=== PATIENT | female | born 1955 | race Caucasian/White ===

== ENCOUNTER 2016-09-09 09:09 | Inpatient (IN) | payer OTHER ==
[~2016-09-09] VITALS: Ht 160 cm; Wt 52.5 kg
--- NOTE | ~2016-09-09 | HP ---
Unit #: [id number] #: [id number] Patient: FREDO MOCK [id number] [facility]. [place], [place] [address] [id number] MR#: [id number] NAME: FREDO MOCK ROOM: Age: 61 Sex: F Admission Date: 09/09/2016 : 1955 Attending Physician: Kai Casey M.D. Primary Care Physician: Eri Melara A.P.R.N. HISTORY AND PHYSICAL CHIEF COMPLAINT Arm swelling. HISTORY OF PRESENT ILLNESS The patient is a 61-year-old female with past medical history of COPD, chronic respiratory failure, hyperlipidemia, who presented to the emergency department for evaluation of the above. The patient states that she was scratched by a dog about two weeks after Mother's Day. She states that the scratch was healing well until a couple of weeks ago when it started itching. She then tried Calamine lotion and the area started burning. She was placed on Bactroban by her primary care physician. The arm has become increasingly red, swollen and tender to palpation. It has also been oozing. She denies any fever or chills. No cough or cold symptoms. No vomiting or diarrhea. In the emergency department, the patient was given vancomycin and Zosyn. She is being admitted to [facility] for evaluation and further treatment. PAST MEDICAL HISTORY 1. Admission to [facility], December 13, 2013, for acute respiratory failure and COPD exacerbation. 2. COPD followed by Keyana Guevara in Dr. Vela's office. 3. Chronic respiratory failure on two liters of oxygen per nasal cannula at night. 4. Hyperlipidemia. PAST SURGICAL HISTORY 1. Bilateral tubal ligation. 2. Cataract surgery. SOCIAL HISTORY The patient lives with her . She smokes less than a pack of cigarettes daily. She reports occasional alcohol use. FAMILY HISTORY Notable for her dad committing suicide. Her mother had some type of malignancy. ALLERGIES Gatifloxacin. HOME MEDICATIONS Unit #: [id number] #: [id number] Patient: FREDO MOCK 1. Folic acid 400 mcg daily. 2. Atorvastatin 10 mg daily. 3. Taladine 150 mg twice daily. 4. Breo Ellipta 100/25 mcg inhaled daily. 5. Tudorza inhaled twice daily. 6. Aspirin 81 mg daily. 7. Alendronate 70 mg weekly. 8. Fish oil 300 mg daily. 9. Celexa 20 mg daily. 10. ProAir two puffs four times daily p.r.n. 11. Calcium 600 mg daily. 12. Incruse Ellipta inhaled daily. REVIEW OF SYSTEMS A complete review of systems is negative except as indicated in HPI. PHYSICAL EXAMINATION GENERAL APPEARANCE: The patient is a female who is awake and alert, in no acute distress. VITAL SIGNS: Temperature 97.8. Pulse 107. Respirations 16. Blood pressure 152/91. Oxygen saturation was initially 89% on room air, most recently 94%. HEENT: The head is atraumatic. Mucous membranes are moist. NECK: Supple. Trachea is midline. CARDIOVASCULAR: Regular rate and rhythm. LUNGS: Clear to auscultation bilaterally with no increased work of breathing. ABDOMEN: Soft, nontender with bowel sounds present in all four quadrants. EXTREMITIES: The right forearm demonstrates erythema, warmth, edema and tenderness to palpation. It is weeping. There is a 2+ radial pulse. Sensation is intact. There is no pedal edema. NEUROLOGIC: The patient is awake and alert. She follows commands. PSYCHIATRIC: Mood and affect are normal. The patient is cooperative. SKIN: Of examined areas demonstrates the previously described abnormalities. DIAGNOSTIC STUDIES LABORATORY: Complete blood count is notable for MCV of 102.5. Basic metabolic panel notable for chloride of 99. ASSESSMENT The patient is a 61-year-old female with: 1. Right upper extremity cellulitis. 2. COPD with continued tobacco abuse. 3. Chronic respiratory failure on two liters of oxygen per nasal cannula at night. 4. Hyperlipidemia. PLAN 1. Admit to med/surg. 2. Healthy Heart diet. 3. Blood cultures x2. 4. Would culture and sensitivity. 5. Vancomycin IV and Zosyn IV for cellulitis. 6. PRN Tylenol. 7. PRN Zofran. 8. Supplemental oxygen. 9. Repeat labs in the morning. Unit #: [id number] #: [id number] Patient: FREDO MOCK 10. SCDs for DVT prophylaxis. 11. Additional workup and consultants based on above. Dictated by Ami Payan TD: 09/09/2016 13:49 JOB #: [id number] HISTORY AND PHYSICAL Page 1 of 1 X Eryn Russo MD HISTORY AND PHYSICAL
--- NOTE | ~2016-09-09 | DS ---
Unit #: [id number] #: [id number] Patient: FREDO MOCK [id number] [address] [address] [id number] MR#: [id number] NAME: FREDO MOCK ROOM: 228 Age: 61 Sex: F Admission Date: 09/09/2016 : 1955 Discharge Date: 09/11/2016 Attending Physician: Eryn Russo M.D. Primary Care Physician: Eri Melara A.P.R.N. DISCHARGE SUMMARY DIAGNOSIS ON ADMISSION Right upper extremity cellulitis. DIAGNOSES ON DISCHARGE 1. Right upper extremity cellulitis with small open area, improving. 2. Chronic obstructive pulmonary disease. 3. Chronic respiratory failure, on 2 liters of oxygen. 4. Hyperlipidemia. DIAGNOSTIC STUDIES LABS: The patient's creatinine is 0.4, sodium 139, potassium 4. WBC is 9.1, hemoglobin 13.8, platelet count 201. The patient's wound culture was done yesterday, and the results are pending. HOSPITAL COURSE This 61-year-old patient was admitted to [facility]. [facility] with right upper extremity cellulitis. The patient was treated with IV antibiotics and has responded well. Redness and swelling has improved. The patient was treated with IV vancomycin. Her wound cultures are pending, but she is very anxious to go home. Therefore, we will discharge her home on antibiotics with followup on outpatient basis. RECOMMENDATIONS ON DISCHARGE 1. Condition is stable. 2. Activity is as tolerated. DISCHARGE MEDICATIONS 1. Doxycycline 100 mg p.o. b.i.d. 2. Albuterol 2 puffs q.6 hours p.r.n. 3. Calcium 600 mg daily. 4. Tylenol 650 mg p.o. q.4 hours p.r.n. 5. Celexa 20 mg p.o. daily. 6. Breo Ellipta 100/25 one inhalation daily. 7. [place] fish oil 1 capsule daily. 8. Lipitor 10 mg p.o. daily. 9. Zantac 150 mg p.o. daily. 10. Fosamax 70 mg p.o. weekly. 11. Enteric-coated aspirin 81 mg p.o. daily. 12. Folic acid 1 mg p.o. daily. NOTE: The patient is advised to continue home inhalers. I did not make any change. FOLLOWUP Unit #: [id number] #: [id number] Patient: FREDO MOCK 1. The patient is advised to follow up with primary care physician in [address] Thomas and group in 1 week regarding the small open area. 2. The patient is advised to call our office in 2 days for wound culture results. PLAN The plan was discussed in detail with the patient and her , and they showed complete understanding. They were advised to call primary care physician or go to ER if her condition changes. We will arrange home health regarding wound care. Dictated by... Ami Lilly/jesika TD: 09/11/2016 15:22 JOB #: [id number] DISCHARGE SUMMARY Page 1 of 1 X Devonte Brantley MD X DISCHARGE SUMMARY
[~2016-09-09 09:09] MED LIST: ACID REDUCER75 M1 PO; AMOXICILLIN500 M1 PO; ASPIRIN EC81 M1 PO; B COMPLEX WITH1 EAC1 PO; CALCIUM + D 6001 TA1 PO; CALCIUM 600-D T1 TAB PO; CITALOPRAM HBR10 MG PO; FOSAMAX5 M1 PO; FOSAMAX5 MG PO; NORCO1 TAB 10/3 PO; PREDNISONE10 MG PO; PROAIR HFA8.5 GM IH; SYMBICORT INH; TUDORZA PRESS400 MCG IH
[2016-09-09 11:03] LABS: BASOPHIL# 0.1 X10e3 (0-0.3); EOSINOPHIL# 0.7 X10e3 (0-0.7); EOSINOPHIL% 6.8 % (0.0-7.0); HEMATOCRIT 48.1 % (35.0-45.0); HEMOGLOBIN 15.5 gm/dL (12.0-16.0); LYMPHOCYTE% 18.7 % (17.0-45.0); MEAN CELL VOLUME 102.5 FL (83-96); MEAN CORPUSCULAR HEMOGLOBIN 32.9 PG (28-34); MEAN CORPUSCULAR HGB CONC 32.2 g/dL (30-36); MEAN PLATELET VOLUME 9.6 FL (6.5-11.5); MONOCYTE# 1.1 X10e3 (0-1.0); MONOCYTE% 10.2 % (3.0-12.0); NEUTROPHIL# 6.7 X10e3 (1.5-7.1); NEUTROPHIL% 63.3 % (40-75); RED CELL DISTRIBUTION WIDTH 14.1 % (11.0-15.5); WHITE BLOOD COUNT 10.5 X10e3 (4.0-10.5)
[2016-09-09 11:18] LABS: DIFF IND YES; PLATELET COUNT 156 X10e3 (140-420)
[2016-09-09 11:19] LABS: ANISOCYTOSIS SL; PLATELET ESTIMATE NORMAL (NORMAL)
[2016-09-09 11:36] LABS: CALCIUM SERUM 9.4 mg/dL (8.4-10.2); CREATININE SERUM 0.6 mg/dL (0.6-1.4); POTASSIUM 4.5 mmol/L (3.5-5.1)
[2016-09-09] MEDS ORDERED: FOLIC ACID PO (12:01)
[2016-09-09] MEDS ORDERED: TALADINE150 MG PO (12:01)
[2016-09-09] MEDS ORDERED: (NONE)500 MCG PO (12:01)
[2016-09-09] MEDS ORDERED: ATORVASTATIN CA10 MG PO (12:01)
[2016-09-09] MEDS ORDERED: TUDORZA PRESS400 MCG INH (12:02)
[2016-09-09] MEDS ORDERED: ALENDRONATE SOD70 M1 PO (12:02)
[2016-09-09] MEDS ORDERED: BREO ELLIPTA 11 EACH INH (12:02)
[2016-09-09] MEDS ORDERED: ASPIRIN81 M2 PO (12:02)
[2016-09-09] MEDS ORDERED: FISH OIL300 MG PO (12:03)
[2016-09-09] MEDS ORDERED: CALCIUM500 M1 PO (12:03)
[2016-09-09] MEDS ORDERED: INCRUSE ELLI62.5 MCG INH (12:03)
[2016-09-09] MEDS ORDERED: CELEXA20 M1 PO (12:03)
[2016-09-09] MEDS ORDERED: PROAIR HFA8.5 GM INH (12:03)
[2016-09-10 05:49] LABS: BASOPHIL# 0.1 X10e3 (0-0.3); BASOPHIL% 1.1 % (0-2.5); EOSINOPHIL# 0.8 X10e3 (0-0.7); EOSINOPHIL% 8.6 % (0.0-7.0); HEMATOCRIT 42.4 % (35.0-45.0); HEMOGLOBIN 13.8 gm/dL (12.0-16.0); LYMPHOCYTE# 2.5 X10e3 (1.0-3.5); LYMPHOCYTE% 27.4 % (17.0-45.0); MEAN CELL VOLUME 102.8 FL (83-96); MEAN CORPUSCULAR HEMOGLOBIN 33.5 PG (28-34); MEAN CORPUSCULAR HGB CONC 32.6 g/dL (30-36); MONOCYTE# 0.9 X10e3 (0-1.0); MONOCYTE% 10.1 % (3.0-12.0); NEUTROPHIL# 4.8 X10e3 (1.5-7.1); NEUTROPHIL% 52.8 % (40-75); PLATELET COUNT 201 X10e3 (140-420); RED BLOOD COUNT 4.12 X10e (3.90-5.30); RED CELL DISTRIBUTION WIDTH 14.2 % (11.0-15.5); WHITE BLOOD COUNT 9.1 X10e3 (4.0-10.5)
[2016-09-10 06:09] LABS: DIFF IND NO
[2016-09-10 07:06] LABS: BUN/CREATININE RATIO 32.5; CALCIUM SERUM 8.9 mg/dL (8.4-10.2); CREATININE SERUM 0.4 mg/dL (0.6-1.4); GLOM FILT RATE Estimated 110.9 mL/min (>60)
[2016-09-11] MEDS ORDERED: TUMS500 MG PO (11:56)
[2016-09-11] MEDS ORDERED: 8 HOUR650 MG PO (11:58)
[2016-09-11] MEDS ORDERED: DOXYCYCLINE HY100 M3 PO (11:59)
== END 2016-09-11 12:58 | disposition home health service (06) | DRG 603 ==
LOC: CED 09:09 → CEDOF 13:00 → CED 13:59 → C2A 20:02 → CEDOF 20:02 → C2A 09-11 12:58
PROVIDERS: Emergency Medicine; Family Medicine
DX: L03.113 Cellulitis of right upper limb (principal); J96.10 Chronic respiratory failure, unspecified whether with hypoxia or hypercapnia; J44.9 Chronic obstructive pulmonary disease, unspecified; F17.210 Nicotine dependence, cigarettes, uncomplicated; E78.5 Hyperlipidemia, unspecified; Z98.51 Tubal ligation status; Z81.8 Family history of other mental and behavioral disorders; Z80.9 Family history of malignant neoplasm, unspecified
CPT/HCPCS: 36415; 80048; 80202; 85025; 87040; 87070; 87205; 94640; 94664; 94760; 96365; 96367; 99285; J2543; J3370